=== PATIENT | male | born 1930 | race Caucasian/White ===

== ENCOUNTER → 2017-04-12 | Outpatient (CLI) | payer BLACK LUNG, MEDICARE ==
[~2017-04-12] MED LIST: CATAPRES 0.1MG0.1 MG PO; ELIQUIS2.5 MG PO; MECLIZINE HCL25 MG PO; PROTONIX40 MG PO; SYNTHROID75 MCG PO; TAMSULOSIN HCL0.4 MG PO; TENORMIN 50 MG50 MG PO
== END ==
LOC: HEART 5 07:45
DX: R07.9 Chest pain, unspecified (principal)
CPT/HCPCS: 78452; A9502; J2785